=== PATIENT | female | born 1955 | race Caucasian/White ===

== ENCOUNTER 2017-02-28 11:00 | Outpatient (CLI) | payer OTHER | END 2017-02-28 11:01 | disposition home or self-care (01) | LOC: BICMAMMO 11:00 | PROVIDERS: ATTEND Obstetrics & Gynecology | DX: Z12.31 Encounter for screening mammogram for malignant neoplasm of breast (principal) | CPT/HCPCS: 77063 ==

== ENCOUNTER 2019-03-11 08:53 | Outpatient (CLI) | payer MEDICARE ==
--- NOTE | 2019-03-11 09:22 | BD ---
DEXA BONE DENSITY SCAN: 03/11/2019 HISTORY: Postmenopausal female undergoing screening for osteoporosis. FINDINGS: LUMBAR SPINE BMD (g/cm2) T-SCORE L1 0.733 -2.3 L2 0.750 -2.5 L3 0.737 -3.2 L4 0.843 -2.0 TOTAL 0.770 -2.5 FEMORAL NECK 0.670 -1.6 TOTAL PROXIMAL FEMUR 0.795 -1.2 The FRAX-WHO Fracture Risk Assessment is not reported as some T-scores are at or below -2.5. IMPRESSION: Osteoporosis of the lumbar spine with femoral neck and proximal femoral osteopenia. Transcribed Date/Time: 03/11/2019 9:49 AM
--- NOTE | 2019-03-11 09:56 | MMO ---
Bilateral MAMMO Bilat Screen [facility]. CLINICAL HISTORY: Patient is 63 years old and is seen for screening. The patient has no family history of breast cancer. The patient has no personal history of cancer. VIEWS: The views performed were: bilateral craniocaudal with tomosynthesis; bilateral mediolateral oblique with tomosynthesis; and bilateral exaggerated craniocaudal. FILMS COMPARED: The present examination has been compared to prior imaging studies performed at [facility] on 07/17/2014, 09/09/2015 and 02/28/2017, and at [facility] on 11/16/2008. This study has been interpreted with the assistance of computer-aided detection. MAMMOGRAM FINDINGS: The breasts are heterogeneously dense, which could obscure a lesion on mammography. There are benign appearing and vascular calcifications seen in both breasts. There are no suspicious masses, suspicious calcifications, or new areas of architectural distortion. IMPRESSION: THERE IS NO MAMMOGRAPHIC EVIDENCE OF MALIGNANCY. A ROUTINE FOLLOW-UP MAMMOGRAM IN 1 YEAR IS RECOMMENDED. THE RESULTS OF THIS EXAM WERE SENT TO THE PATIENT. ACR BI-RADS Category 2 - Benign finding MAMMOGRAPHY NOTE: 1. A negative mammogram report should not delay a biopsy if a dominant of clinically suspicious mass is present. 2. Approximately 10% to 15% of breast cancers are not detected by mammography. 3. Adenosis and dense breasts may obscure an underlying neoplasm. Reported by: MARY CRAIG MD Electonically Signed: [id number]
== END 2019-03-11 08:54 | disposition home or self-care (01) ==
LOC: BICMAMMO 08:53
PROVIDERS: ATTEND Family Medicine
DX: Z12.31 Encounter for screening mammogram for malignant neoplasm of breast (principal); M81.0 Age-related osteoporosis without current pathological fracture; M85.88 Other specified disorders of bone density and structure, other site
CPT/HCPCS: 77063; 77067; 77080

== ENCOUNTER 2019-09-22 09:41 | Outpatient (CLI) | payer MEDICARE ==
--- NOTE | 2019-09-22 10:05 | RAD ---
EXAM: Two views chest PROVIDED CLINICAL HISTORY: Cough. COMPARISON: 07/15/2013 FINDINGS: Cardiac silhouette and pulmonary vasculature are within normal limits. Minimal and stable symmetric biapical pleural thickening is present. Lungs are otherwise clear without consolidation or pleural fluid. Minimal degenerative changes are seen in the thoracic spine. No significant interval change fr om prior exam. IMPRESSION: No acute cardiopulmonary process.
[2019-09-22 11:13] LABS: #Eosinphils 0.1 thou/uL (0.0-0.7); #Lymphocytes 2.9 thou/uL (1.20-3.40); #Monocytes 0.7 thou/uL (0.11-0.59); #Neutrophils 3.5 thou/uL (1.40-6.50); %Basophils 0.7 % (0.0-1.0); %Eosinophils 0.9 % (0.0-10.0); %Lymphocytes 39.8 % (21.0-51.0); %Monocytes 9.9 % (0.0-10.0); %Neutrophils 48.7 % (42.0-75.0); Mean Corpuscular HGB CONC 34.4 g/dL (32.0-36.0); Mean Corpuscular Hemoglobin 33.4 pg (27.0-31.0); Mean Corpuscular Volume 97.3 fL (78.0-98.0); Mean Platelet Volume 7.6 fL (7.4-10.4); Platelet Count 310 thou/uL (130-400); RBC Distribution Width 11.9 % (11.5-14.5); Red Blood Cell (RBC) Count 4.48 mill/uL (4.20-5.40); White Blood Cell (WBC) Count 7.3 thou/uL (4.8-10.8)
[2019-09-22 11:50] LABS: ALT (SGPT) 16 U/L (8-55); AST (SGOT) 24 U/L (5-34); Albumin 4.3 g/dL (3.4-4.8); Alkaline Phosphatase 124 U/L (40-110); Anion Gap 16 mmol/L (10-20); BUN (Urea Nitrogen) 16 mg/dL (9.8-20.1); Bilirubin, Total 0.4 mg/dL (0.2-1.2); Calc. Creatinine Clearance 0 mL/min (70-130); Calcium 9.7 mg/dL (7.8-10.44); Carbon Dioxide 24 mmol/L (23-31); Cardiac Risk 3.8 (Less than 4.5); Chloride 98 mmol/L (98-107); Cholesterol 192 mg/dl (< 200 Desired); Estimated GFR-MDRD 72; Globulin 3.2 g/dL (2.4-3.5); Glucose 87 mg/dL (80-115); HDL Cholesterol 51 mg/dL (>60 Neg Risk); LDL Cholesterol, Calculated 107 mg/dL; Protein, Total 7.5 g/dL (6.0-8.3); Sodium 133 mmol/L (136-145); Triglycerides 172 mg/dL (Less than 150)
[2019-09-22 12:04] LABS: Free T4 (Free Thyroxine) 1.17 ng/dL (0.70-1.48); Thyroid Stimulating Hormone 0.1144 uIU/mL (0.35-4.94)
[2019-09-22 12:05] LABS: Vitamin D, 25 Hydroxy 39.2 ng/ml (> 30.0)
[2019-09-22 14:06] LABS: Bilirubin Negative (Negative); Blood, Urine Negative (Negative); Clarity Clear (Clear); Glucose, Urine (Dipstick) Normal (Negative); Leukocyte Negative Leu/uL (Negative); Nitrite Negative (Negative); Protein, Urine (Dipstick) Negative (Neg-Trace); Urobilinogen Normal mg/dL (Less than 2)
== END 2019-09-22 09:42 | disposition home or self-care (01) ==
LOC: SCSRAD 09:41
PROVIDERS: ATTEND Family Medicine
DX: R05 Cough (principal); E03.9 Hypothyroidism, unspecified; E55.9 Vitamin D deficiency, unspecified; I10 Essential (primary) hypertension
CPT/HCPCS: 36415; 71046; 80053; 80061; 81003; 82306; 84439; 84443; 84481; 85025

== ENCOUNTER 2020-01-28 12:25 | Emergency (ER) | payer MEDICARE ==
--- NOTE | 2020-01-28 13:24 | RAD ---
PORTABLE CHEST 1 VIEW: Date: 01/28/2020 Time: 1314 hours HISTORY: Lightheadedness, near syncope. Bradycardia. COMPARISON: 09/22/2019. FINDINGS: The heart size is normal. The lungs are expanded without lobar consolidation, pneumothoraces, or pleu ral effusions. There are postop changes of right rotator cuff repair. IMPRESSION: No acute process. POS: AH
[2020-01-28 14:01] LABS: #Basophils 0.1 thou/uL (0.0-0.2); #Lymphocytes 2.8 thou/uL (1.20-3.40); #Monocytes 1.1 thou/uL (0.11-0.59); %Basophils 0.6 % (0.0-1.0); %Eosinophils 0.4 % (0.0-10.0); %Lymphocytes 23.5 % (21.0-51.0); %Monocytes 8.9 % (0.0-10.0); %Neutrophils 66.6 % (42.0-75.0); Hemoglobin 14.9 g/dL (12.0-16.0); Mean Corpuscular HGB CONC 34.9 g/dL (32.0-36.0); Mean Corpuscular Hemoglobin 33.6 pg (27.0-31.0); Mean Corpuscular Volume 96.3 fL (78.0-98.0); Mean Platelet Volume 7.2 fL (7.4-10.4); Platelet Count 386 thou/uL (130-400); RBC Distribution Width 11.6 % (11.5-14.5); Red Blood Cell (RBC) Count 4.43 mill/uL (4.20-5.40)
[2020-01-28 14:19] LABS: ALT (SGPT) 13 U/L (8-55); AST (SGOT) 17 U/L (5-34); Albumin 4.1 g/dL (3.4-4.8); Alkaline Phosphatase 125 U/L (40-110); Anion Gap 17 mmol/L (10-20); BUN (Urea Nitrogen) 16 mg/dL (9.8-20.1); Bilirubin, Total 0.4 mg/dL (0.2-1.2); Calc. Creatinine Clearance 0 mL/min (70-130); Calcium 9.2 mg/dL (7.8-10.44); Carbon Dioxide 24 mmol/L (23-31); Chloride 90 mmol/L (98-107); Estimated GFR-MDRD 69; Globulin 3.4 g/dL (2.4-3.5); Glucose 101 mg/dL (80-115); Potassium 3.4 mmol/L (3.5-5.1); Protein, Total 7.5 g/dL (6.0-8.3); Sodium 128 mmol/L (136-145)
[2020-01-28] MEDS ORDERED: Acetaminophen 500 MG TAB ONE (17:10)
[2020-01-28] MEDS ORDERED: Ibuprofen 200 MG TAB ONE (17:10)
--- NOTE | 2020-01-31 15:32 | EKG ---
Test Reason : Blood Pressure : / mmHG Vent. Rate : 068 BPM Atrial Rate : 068 BPM P-R Int : 152 ms QRS Dur : 070 ms QT Int : 416 ms P-R-T Axes : 039 004 034 degrees QTc Int : 442 ms Normal sinus rhythm Possible Left atrial enlargement Left ventricular hypertrophy Abnormal ECG Confirmed by JIMMY BRENNER ([id number]), newspaper managing editor NU ESPINO ([id number]) on 01/31/2020 3:32:27 PM Referred By: Confirmed By:JIMMY Ramirez
== END 2020-01-28 17:30 | disposition home or self-care (01) ==
LOC: ERS 12:25
DX: R55 Syncope and collapse (principal); I10 Essential (primary) hypertension
CPT/HCPCS: 36415; 71045; 80053; 84484; 85025; 93005

== ENCOUNTER 2021-01-12 08:14 | Outpatient (CLI) | payer MEDICARE | END 2021-01-12 08:15 | disposition home or self-care (01) | LOC: BICRAD 08:14 | PROVIDERS: ATTEND Internal Medicine Critical Care Medicine | DX: R06.00 Dyspnea, unspecified (principal) | CPT/HCPCS: 71046 ==

== ENCOUNTER 2021-01-31 14:34 | Outpatient (CLI) | payer MEDICARE | END 2021-01-31 14:35 | disposition home or self-care (01) | LOC: BICMRI 14:34 | PROVIDERS: ATTEND Family Medicine | DX: M54.50 Low back pain, unspecified (principal); M43.16 Spondylolisthesis, lumbar region; M47.816 Spondylosis without myelopathy or radiculopathy, lumbar region; M48.061 Spinal stenosis, lumbar region without neurogenic claudication; M51.26 Other intervertebral disc displacement, lumbar region | CPT/HCPCS: 72148 ==

== ENCOUNTER 2021-02-08 14:46 | Outpatient (CLI) | payer MEDICARE | END 2021-02-08 14:47 | disposition home or self-care (01) | LOC: BICMAMMO 14:46 | PROVIDERS: ATTEND Family Medicine | DX: Z12.31 Encounter for screening mammogram for malignant neoplasm of breast (principal) | CPT/HCPCS: 77063; 77067 ==

== ENCOUNTER 2021-03-11 15:23 | Outpatient (CLI) | payer MEDICARE | END 2021-03-11 15:24 | disposition home or self-care (01) | LOC: BICRAD 15:23 | PROVIDERS: ATTEND Specialist | DX: M43.16 Spondylolisthesis, lumbar region (principal); M47.816 Spondylosis without myelopathy or radiculopathy, lumbar region | CPT/HCPCS: 72110 ==

== ENCOUNTER 2021-04-08 15:02 | Outpatient (CLI) | payer MEDICARE | END 2021-04-08 15:03 | disposition home or self-care (01) | LOC: SCSRAD 15:02 | PROVIDERS: ATTEND Nurse Practitioner Family | DX: M62.838 Other muscle spasm (principal); M47.812 Spondylosis without myelopathy or radiculopathy, cervical region | CPT/HCPCS: 72040 ==

== ENCOUNTER 2021-05-18 12:43 | Outpatient (CLI) | payer MEDICARE | END 2021-05-18 12:44 | disposition home or self-care (01) | LOC: MRI 12:43 | PROVIDERS: ATTEND Specialist | DX: M47.22 Other spondylosis with radiculopathy, cervical region (principal) | CPT/HCPCS: 72141 ==

== ENCOUNTER 2021-07-20 12:59 | Outpatient (CLI) | payer MEDICARE ==
[~2021-07-20 12:59] MED LIST: Iopamidol-370 76% 500 ML 1 ML ONE
== END 2021-07-20 13:00 | disposition home or self-care (01) ==
LOC: BICCT 12:59
PROVIDERS: ATTEND Psychiatry & Neurology Neurology
DX: R51.9 Headache, unspecified (principal); M95.0 Acquired deformity of nose
CPT/HCPCS: 70488; 82565; Q9967

== ENCOUNTER 2022-07-05 13:30 | Outpatient (CLI) | payer MEDICARE | END 2022-07-05 13:31 | disposition home or self-care (01) | LOC: BICMAMMO 13:30 | PROVIDERS: ATTEND Family Medicine | DX: Z12.31 Encounter for screening mammogram for malignant neoplasm of breast (principal); Z78.0 Asymptomatic menopausal state; M85.89 Other specified disorders of bone density and structure, multiple sites | CPT/HCPCS: 77063; 77067; 77080 ==